=== PATIENT | female | born 1960 | race Caucasian/White ===

== ENCOUNTER 2017-11-13 02:57 | Inpatient (IN) | END 2017-11-14 14:03 | disposition home or self-care (01) | DRG 645 ==

== ENCOUNTER 2018-10-18 16:47 | Emergency (ER) | payer OTHER ==
[~2018-10-18] VITALS: Ht 152.4 cm; Wt 43.1 kg
[~2018-10-18 16:47] MED LIST: METH10TA5 PO; METO-448 PO
[2018-10-18 16:54] VITALS: Ht 152.4 cm; Wt 43.1 kg
[2018-10-18] MEDS ORDERED: FURO20TA3 PO (17:34)
[2018-10-18] MEDS ORDERED: METH10TA5 PO (17:34)
[2018-10-18] MEDS ORDERED: CARV3.1260 PO (17:35)
[2018-10-18 19:48] VITALS: BP 150/59; PULSE 67; RESP 20
--- NOTE | 2018-10-18 19:52 | ERD ---
ER Documentation Chief Complaint Chief Complaint c/o fatigue on mild activity, hx: CHF. Clinis referred pt. to come to ER HPI Patient is a 57-year-old female with thyroid disease and hypertension who presents with "chronic heart failure and thyroid issue". She was sent by the clinic who sent her to the emergency department. She has no chest pain or shortness of breath. She is weaker per the daughter. She has had no fevers. S he started methimazole on October 11 for hyperthyroid. Upon review of old medical records the patient one previous visit to the ER in October 2017. She does not remember the name of her primary doctor. ROS All systems reviewed and are negative except as per history of present illness. Medications Home Meds Reported Medications Carvedilol* (Carvedilol*) 3.125 Mg Tablet, 3.125 MG PO BID, #60 TAB 10/18/18 Furosemide* (Furosemide*) 20 Mg Tablet, 20 MG PO DAILY, #60 TAB 10/18/18 Methimazole* (Methimazole*) 10 Mg Tablet, 10 MG PO DAILY, TAB 10/18/18 Discontinued Scripts Methimazole* (Methimazole*) 10 Mg Tablet, 20 MG PO DAILY, #60 TAB 2 Refills Prov:ELAINA BALDERAS 11/14/17 Metoprolol Tartrate* (Lopressor*) 25 Mg Tab, 25 MG PO BID for 30 Days, #60 TAB 2 Refills Prov:ELAINA BALDERAS 11/14/17 Allergies Allergies: Coded Allergies: No Known Allergy (Unverified , 10/18/18) PMhx/Soc History of Surgery: No Anesthesia Reaction: No Hx Neurological Disorder: No Hx Respiratory Disorders: No Hx Cardiac Disorders: Yes (HTN,a-fib) Hx Psychiatric Problems: No Hx Miscellaneous Medical Probl: Yes (hyperthyroid, ) Hx Alcohol Use: No Hx Substance Use: No Hx Tobacco Use: No Smoking Status: Never smoker FmHx Family History: No coronary disease Physical Exam Vitals Vital Signs Date Temp Pulse Resp B/P (MAP) Pulse Ox O2 O2 Flow FiO2 Time Delivery Rate 10/18/18 98.0 67 20 150/59 100 Room Air 19:48 (89) 10/18/18 69 15 153/61 100 Room Air 18:44 (91) 10/18/18 98.8 75 24 191/73 98 16:54 (112) Physical Exam Const: No acute distress Head: Atraumatic Eyes: Normal Conjunctiva ENT: Normal External Ears, Nose and Mouth. Neck: Full range of motion. No meningismus. Resp: Clear to auscultation bilaterally Cardio: Regular rate and rhythm, no murmurs Abd: Soft, non tender, non distended. Normal bowel sounds Skin: No petechiae or rashes Back: No midline or flank tenderness Ext: No cyanosis, or edema Neur: Awake and alert Psych: Normal Mood and Affect Result Diagram: 10/18/18 1748 10/18/181747 Results 24 hrs Laboratory Tests Test 10/18/18 17:48 White Blood Count 10.6 10^3/ul Red Blood Count 4.72 10^6/ul Hemoglobin 12.7 g/dl Hematocrit 38.0 % Mean Corpuscular Volume 80.5 fl Mean Corpuscular Hemoglobin 26.9 pg Mean Corpuscular Hemoglobin Concent 33.4 g/dl Red Cell Distribution Width 14.4 % Platelet Count 202 10^3/UL Mean Platelet Volume 11.0 fl Immature Granulocytes % 0.400 % Neutrophils % 57.9 % Lymphocytes % 30.7 % Monocytes % 7.4 % Eosinophils % 3.0 % Basophils % 0.6 % Nucleated Red Blood Cells % 0.0 /100WBC Immature Granulocytes # 0.040 10^3/ul Neutrophils # 6.1 10^3/ul Lymphocytes # 3.3 10^3/ul Monocytes # 0.8 10^3/ul Eosinophils # 0.3 10^3/ul Basophils # 0.1 10^3/ul Nucleated Red Blood Cells # 0.0 10^3/ul Sodium Level 141 mmol/L Potassium Level 3.9 mmol/L Chloride Level 106 mmol/L Carbon Dioxide Level 25 mmol/L Anion Gap 10 Blood Urea Nitrogen 10 mg/dl Creatinine 0.28 mg/dl Est Glomerular Filtrat Rate mL/min > 60 mL/min Glucose Level 88 mg/dl Calcium Level 9.2 mg/dl Total Bilirubin 0.6 mg/dl Direct Bilirubin 0.00 mg/dl Indirect Bilirubin 0.6 mg/dl Aspartate Amino Transf (AST/SGOT) 32 IU/L Alanine Aminotransferase (ALT/SGPT) 18 IU/L Alkaline Phosphatase 288 IU/L Troponin I < 0.012 ng/ml Total Protein 8.8 g/dl Albumin 4.2 g/dl Globulin 4.60 g/dl Albumin/Globulin Ratio 0.91 Thyroid Stimulating Hormone (TSH) < 0.015 MIU/L Free Thyroxine 1.45 ng/dl [facility] EKG read by me: Rate/Rhythm: Regular rate and rhythm at a normal rate Intervals: Normal Impression: No evidence of ischemia or arrhythmia Chest x-ray negative per radiology. Patient is a 57-year-old female presents with fatigue. I believe this is likely her hyperthyroid which has recently started treatment. The patient has basically normal laboratory studies otherwise. EKG shows no signs of ischemia. I doubt pneumonia, pneumothorax, pulmonary embolism, or aortic dissection, or acute coronary syndrome. She will be discharged will need to follow-up with her primary doctor within 1 week. Departure Diagnosis: Primary Impression: Hyperthyroidism Additional Impression: Fatigue Fatigue type: unspecified Qualified Codes: R53.83 - Other fatigue Condition: Fair Patient Instructions: Hyperthyroidism, Generalized Weakness Referrals: Your doctor Additional Instructions: Call your primary care doctor TOMORROW for an appointment during the next 1 WEEK.Tell the ward secretary that you were referred from this facility.See the doctor sooner or return here if your condition worsens before your appointment time. DORIE FOX MD October 18, 2018 19:52
== END 2018-10-18 19:50 | disposition home or self-care (01) ==
LOC: E/R 16:47
DX: E03.9 Hypothyroidism, unspecified (principal); I10 Essential (primary) hypertension; R40.2142 Coma scale, eyes open, spontaneous, at arrival to emergency department; R40.2252 Coma scale, best verbal response, oriented, at arrival to emergency department; R40.2362 Coma scale, best motor response, obeys commands, at arrival to emergency department; I50.9 Heart failure, unspecified
CPT/HCPCS: 36415; 71045; 80053; 84439; 84443; 84484; 85025; 93005